=== PATIENT | female | born 1985 | race Caucasian/White ===

== ENCOUNTER → 2024-05-10 16:04 | Outpatient (REF) | payer BC, SELFPAY | LOC: PNTC 16:04 | PROVIDERS: ATTENDING PHYSICIAN Obstetrics & Gynecology | DX: O09.529 Supervision of elderly multigravida, unspecified trimester (principal); O09.811 Supervision of pregnancy resulting from assisted reproductive technology, first trimester | CPT/HCPCS: 76801; 76813 ==

== ENCOUNTER → 2024-06-07 06:47 | Outpatient (REF) | payer BC, SELFPAY | LOC: PNTC 06:47 | PROVIDERS: ATTENDING PHYSICIAN Obstetrics & Gynecology | DX: O09.812 Supervision of pregnancy resulting from assisted reproductive technology, second trimester (principal); O09.529 Supervision of elderly multigravida, unspecified trimester | CPT/HCPCS: 76805 ==

== ENCOUNTER → 2024-07-05 06:51 | Outpatient (REF) | payer BC, SELFPAY | LOC: PNTC 06:51 | PROVIDERS: ATTENDING PHYSICIAN Obstetrics & Gynecology | DX: O09.812 Supervision of pregnancy resulting from assisted reproductive technology, second trimester (principal); O09.529 Supervision of elderly multigravida, unspecified trimester | CPT/HCPCS: 76811; 76817 ==

== ENCOUNTER → 2024-08-17 09:46 | Outpatient (REF) | payer BC, SELFPAY | LOC: PNTC 09:46 | PROVIDERS: ATTENDING PHYSICIAN Obstetrics & Gynecology | DX: O09.529 Supervision of elderly multigravida, unspecified trimester (principal) | CPT/HCPCS: 76816 ==

== ENCOUNTER → 2024-09-28 07:42 | Outpatient (REF) | payer BC, SELFPAY | LOC: PNTC 07:42 | PROVIDERS: ATTENDING PHYSICIAN Obstetrics & Gynecology | DX: O09.529 Supervision of elderly multigravida, unspecified trimester (principal) | CPT/HCPCS: 76816 ==

== ENCOUNTER → 2024-10-26 08:19 | Outpatient (REF) | payer BC, SELFPAY | LOC: PNTC 08:19 | PROVIDERS: ATTENDING PHYSICIAN Obstetrics & Gynecology | DX: O09.529 Supervision of elderly multigravida, unspecified trimester (principal) | CPT/HCPCS: 59025; 76816 ==

== ENCOUNTER 2024-11-02 14:39 | Observation (INO) | payer BC, SELFPAY ==
[2024-11-02 15:08] VITALS: BP 109/77; BMI 29.2
[2024-11-02 15:08] LABS: Hematocrit 40.7 % (37.0-47.0); Hemoglobin 14.2 g/dL (12.0-16.0); Mean Corp Hgb Conc. 34.9 g/dL (33.0-37.0); Mean Corpuscular Volume 96.4 fL (81.0-99.0); Nucleated Red Blood Cells % 0 %; Platelet Count 182 10^3/uL (130-400); Red Cell Dist. Width 12.1 % (11.5-14.5)
[2024-11-02 15:36] LABS: ALT (SGPT) 15 U/L (0-35); AST (SGOT) 27 U/L (14-36); Albumin 3.6 g/dl (3.5-5.0); Alkaline Phosphatase 236 U/L (38-126); Blood Urea Nitrogen 27 mg/dl (7-17); Calcium 9.3 mg/dl (8.4-10.2); Carbon Dioxide 21 mmol/L (22-30); Chloride 111 mmol/L (98-107); Estimated Creatinine Clearance 82 ml/min; Glucose 81 mg/dl (70-99); Potassium 4.4 mmol/L (3.5-5.1); Sodium 136 mmol/L (135-145); Total Protein 6.1 g/dl (6.3-8.2); eGFR > 60.00
== END 2024-11-02 16:40 | disposition home or self-care (01) ==
LOC: PNTC-IN 14:39
PROVIDERS: ADMITTING PHYSICIAN Obstetrics & Gynecology
DX: O99.891 Other specified diseases and conditions complicating pregnancy (principal); R03.0 Elevated blood-pressure reading, without diagnosis of hypertension; Z3A.36 36 weeks gestation of pregnancy
CPT/HCPCS: 59025; 76815; 80053; 82570; 84156; 85025; G0378

== ENCOUNTER → 2024-11-09 08:16 | Outpatient (REF) | payer BC, SELFPAY | LOC: PNTC 08:16 | PROVIDERS: ATTENDING PHYSICIAN Obstetrics & Gynecology | DX: O09.529 Supervision of elderly multigravida, unspecified trimester (principal) | CPT/HCPCS: 59025; 76815 ==

== ENCOUNTER → 2024-11-16 08:16 | Outpatient (REF) | payer BC, SELFPAY | LOC: PNTC 08:16 | PROVIDERS: ATTENDING PHYSICIAN Obstetrics & Gynecology | DX: O09.523 Supervision of elderly multigravida, third trimester (principal); O09.813 Supervision of pregnancy resulting from assisted reproductive technology, third trimester | CPT/HCPCS: 59025; 76815 ==

== ENCOUNTER 2024-11-19 09:18 | Inpatient (IN) | payer BC, SELFPAY ==
[2024-11-19 09:42] VITALS: BP 135/98; BMI 29.1
[2024-11-19 10:16] LABS: Hematocrit 39.6 % (37.0-47.0); Hemoglobin 14.0 g/dL (12.0-16.0); Mean Corp Hgb Conc. 35.4 g/dL (33.0-37.0); Mean Corpuscular Volume 95.0 fL (81.0-99.0); Nucleated Red Blood Cells % 0 %; Platelet Count 165 10^3/uL (130-400); Red Cell Dist. Width 12.2 % (11.5-14.5)
[2024-11-19 10:32] LABS: ALT (SGPT) 15 U/L (0-35); AST (SGOT) 25 U/L (14-36); Albumin 3.6 g/dl (3.5-5.0); Alkaline Phosphatase 242 U/L (38-126); Blood Urea Nitrogen 24 mg/dl (7-17); Calcium 9.1 mg/dl (8.4-10.2); Carbon Dioxide 19 mmol/L (22-30); Chloride 111 mmol/L (98-107); Estimated Creatinine Clearance 67 ml/min; Glucose 120 mg/dl (70-99); Potassium 4.3 mmol/L (3.5-5.1); Sodium 137 mmol/L (135-145); Total Protein 6.1 g/dl (6.3-8.2); eGFR > 60.00
[2024-11-19] MEDS: PITOCIN 30 UNITS/NSS 500 ML IV (14:25)
[2024-11-19] MEDS: LR 1000 IV ×3 (14:26→23:32)
[2024-11-19] MEDS: FENTANYL/BUPIVACAINE 100 EPIDURAL (18:39)
[2024-11-19] MEDS: SUBLIMAZE 100 MCG EPIDURAL (18:39)
[2024-11-20] MEDS: FENTANYL/BUPIVACAINE 100 EPIDURAL ×2 (02:55→11:42)
[2024-11-20] MEDS: LR 1000 IV ×2 (07:45→13:21)
--- NOTE | 2024-11-20 15:45 | HPS.HSE ---
Family Physician
-
Family Physician: Antione Davidson
Chief Complaint
-
rupture of membranes
History of Present Illness
HPI: Patient is a 39yo @40.1 who presents with complaints of spontaneous rupture of membranes for meconium stained amniotic fluid at 2315 on 11/18. She reported some contractions but they were not regular or strong. She denied VB. +FM.
complications
- Advanced maternal age
- IVF
- Hypothyroidism
- OCD
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
Meds: PNV, iron, bASA, Buspar 10mg daily
Surghx: wisdom teeth, IVF
NKDA
Socialhx: denies tobacco, etoh or illicit drug use
Famhx: non-contributory
OBHx: SABx2
labs: Blood type O+, Ab neg, Rubella immune, RPR non-reactive, HIV negative, Hep C negative, HBsAg neg, GCCT neg, 1hr 115, GBS neg
Medical History
Past Medical History
Past Medical History: Reports Hypothyroidism and Other
Past Surgical History: Reports Other
Social History
Tobacco: Non-smoker
Alcohol: None
Drug: None
Family History
Family History: Not pertinent
Allergies / Home Medications
Allergies reflects when Allergies were last updated in [facility].
Home Medications with original date entered in [facility]
Allergy/Medication List:
Meds: PNV, iron, bASA, Buspar 10mg daily
NKDA
Review of Systems
-
A 12 point ROS was completed and negative except as noted: Yes
Physical Exam
Vital Signs
Vital Signs
Temp Pulse Resp BP
98.0 F 92 18 135/98
11/19/24 09:42 11/19/24 09:42 11/19/24 09:42 11/19/24 09:42
Physical Exam
General: Well Developed and Well Nourished
HEENT: NormoCephalic
Respiratory: Non Labored Respirations
Cardiac: Regular Rhythm
Neuro: Awake and Alert
Psych: Calm
Laboratory Results
-
11/19/24 10:10
11/19/24 10:10
Laboratory Results
Total Bilirubin 1.0 mg/dl (0.2-1.3) 11/19/24 10:10
AST 25 U/L (14-36) 11/19/24 10:10
ALT 15 U/L (0-35) 11/19/24 10:10
Alkaline Phosphatase 242 U/L (38-126) H 11/19/24 10:10
Impression/Plan
-
IMPRESSION:
Patient is a 39yo @40.1 weeks who presents with spontaneous rupture of membranes for meconium stained amniotic fluid on 11/18
PLAN:
- Patient admitted for expectant management. Declined Pitocin for augmentation when first admitted. After several hours, patient was still not joanna and she agreed to Pitocin for augmentation. She progressed to 1-2cm at 1910 and then to 4cm at
0930. Throughout the morning of 11/20, the Pitocin had to be turned off for category 2 tracing with variable and late decelerations. At 1450, she was examined and remained unchanged. Pitocin was unable to stay on due to category 2 tracing.
Recommendation was made for primary section for non-reassuring heart tones. Risks, benefits and alternatives including bleeding, infection, damage to surrounding structures and need for future operations reviewed. Consents signed.
Patient consented for a blood transfusion in case of emergency
- 2g Ancef and 500mg of Azithromycin were ordered for antibiotic prophylaxis
- Anesthesia notified
[2024-11-20] MEDS: ZITHROMAX INFUSION 250 IV (16:31)
[2024-11-20] MEDS: ANCEF 10 IV (16:31)
[2024-11-20] MEDS: BICITRA 30 ML PO (16:32)
[2024-11-20] MEDS: TYLENOL 1000 MG PO (16:34)
[2024-11-20] MEDS: PITOCIN 30 UNITS/NSS 500 ML IV (17:18)
[2024-11-20 17:51] LABS: Cord VBG B.E. - POC -3.8 mmol/L; Cord VBG HCO3 - POC 22 mmol/L; Cord VBG O2 Sat % - POC 30.6 %; Cord VBG pCO2 - POC 39 mmHg; Cord VBG pH - POC 7.35; Cord VBG pO2 - POC 20 mmHg
[2024-11-20] MEDS: MORPHINE SULFATE 2 MG IV (18:57)
--- NOTE | 2024-11-20 19:52 | OR.RPT ---
Operative Report
Operative Report
Procedure date: 11/20/2024
Preop diagnosis: IUP @40.1, meconium stained amniotic fluid, non-reassuring heart tones, IVF
Postop diagnosis: same
Surgeon: David
Procedure: Primary low transverse section
Anesthesia: Epidural, Bard
Findings: viable female born at 1721, Apgars 8/9, thick meconium stained amniotic fluid, uterine atony responded to TXA and Hemabate. Raw appearing hysterotomy- Surgicel placed at the end
QBL: 732mL
Complications: none
Pathology: Placenta
Indication: Patient is a 39yo @40.1 weeks who presented to Labor and Delivery on 11/19 with complaints of rupture of membranes for meconium stained fluid on 11/18 at 2315. She was having irregular contractions. On admission, Pitocin was
recommended since she had been ruptured for >9 hours but she declined and opted for expectant management. After several hours, she agreed to Pitocin. She was 1-2cm when Pitocin was started. The Pitocin was continued and she progressed to 4cm. During
the day of 11/20, Pitocin was turned on and off secondary to a category 2 tracing with late and variable decelerations. She was re-examined at 1450 and was unchanged from the exam in the morning. A discussion was held with the patient in her
that she is remote from delivery and has not made any cervical change and Pitocin cannot be increased secondary to non-reassuring tracing. A primary section was recommended. Patient wanted to discuss with her and her senior program analyst. After an
hour and a half, patient agreed to proceed with primary section. Risks, benefits and alternatives including bleeding, infection, damage to surrounding structures and need for future operations. Consents were signed and anesthesia was
notified.
Procedure: Patient was taken to the operating room where epidural anesthesia was bolused and found to be adequate. 2g of Ancef and 500mg of Azithromycin were given for antibiotic prophylaxis. The abdomen was prepped with ChloraPrep. The patient was
draped in the normal sterile fashion. She was placed in the dorsal supine position with a left lateral tilt. A Pfannenstiel incision was made with a 10 blade and carried down to the fascia with a scalpel. Hemostasis achieved with Bovie. The fascia
was incised and dissected laterally with Reeves scissors. The superior aspect of the fascia was grasped with China clamps. The underlying rectus fascia was sharply dissected with Reeves scissors. In a similar fashion the inferior aspect of the fascia
was elevated with China clamps and the rectus muscle was dissected off with Reeves scissors. The rectus muscles were down the midline to the level of the pubic symphysis with manual dissection. The peritoneum was bluntly entered and
extended using manual traction.
Vazquez retractor and bladder blade were placed revealing good visualization of the bladder. The vesicouterine peritoneum was identified. A very thin lower uterine segment was noted. The lower uterine segment was incised with a scalpel. Thick
meconium stained amniotic fluid noted at entry. The uterine incision was extended bluntly with lateral and upward traction.
The fetus was in cephalic presentation. The head was elevated out of the pelvis with special attention paid to avoid using the uterine incision as a fulcrum. Gentle fundal pressure was applied once the head was brought to the incision. The head
delivered through the hysterotomy. The rest of the infant delivered without difficulty. Delayed cord clamping was not performed per neonatology. The was handed off to the superintendent drilling. IV oxytocin was started to facilitate uterine
contractions. The placenta was manually extracted. The uterus was exteriorized. The uterus was atonic and there was brisk bleeding. TXA and Hemabate were given. Allis clamps were placed at the apices of the hysterotomy. The inside of the uterus was
wiped with a lap sponge to assure complete removal of placental membranes. Fundal massage was performed and there was improvement in the tone. The uterine incision was closed with 0 Vicryl in a running locked fashion. A horizontal imbricating stitch
was done on the hysterotomy with 0 Vicryl. The hysterotomy was inspected and there was oozing at the left corner. Figure of eights with 2-0 and 0 Vicryl were used to achieve hemostasis. Bovie cautery was used on small oozing areas of the serosa. The
uterus was placed back in the abdomen. Blood clots and fluid were wiped out of the abdomen and pelvis with moist laparotomy sponges. The hysterotomy was examined and was hemostatic, but raw appearing. Surgicel was placed over the hysterotomy
The rectus muscles were inspected and there was oozing from the right rectus muscle. Bovie cautery was used to achieve hemostasis. The fascial layer was closed in a running continuous fashion using 0 Vicryl. The subcutaneous tissue was copiously
irrigated and any small bleeding vessels were cauterized with Bovie cautery. The subcutaneous tissue was not reapproximated as it was less than 2cm. The skin was closed with 4-0 Vicryl in a subcuticular fashion and covered with skin glue. The
patient tolerated the procedure well. All sponge and instrument counts were correct times two. The patient was taken to the recovery room in stable condition. Ceballos catheter was draining clear urine at the end of the procedure.
[2024-11-20] MEDS: TORADOL 15 MG IV (20:04)
[2024-11-21] MEDS: COLACE 100 MG PO ×3 (00:19→20:21)
[2024-11-21] MEDS: TORADOL 15 MG IV ×3 (01:26→12:46)
[2024-11-21 04:26] LABS: Hematocrit 36.9 % (37.0-47.0); Hemoglobin 12.7 g/dL (12.0-16.0); Mean Corp Hgb Conc. 34.4 g/dL (33.0-37.0); Mean Corpuscular Volume 96.1 fL (81.0-99.0); Platelet Count 128 10^3/uL (130-400); Red Cell Dist. Width 12.2 % (11.5-14.5)
[2024-11-21] MEDS: PRENATAL PLUS 1 TABLET PO (07:22)
[2024-11-21] MEDS: FEOSOL 325 MG PO (07:22)
[2024-11-21] MEDS: MOTRIN 600 MG PO (20:21)
[2024-11-22] MEDS: TYLENOL 650 MG PO ×2 (02:00→06:00)
[2024-11-22] MEDS: MOTRIN 600 MG PO ×2 (02:23→19:50)
[2024-11-22 06:08] LABS: Hematocrit 28.6 % (37.0-47.0); Hemoglobin 10.1 g/dL (12.0-16.0); Mean Corp Hgb Conc. 35.3 g/dL (33.0-37.0); Mean Corpuscular Volume 96.6 fL (81.0-99.0); Platelet Count 138 10^3/uL (130-400); Red Cell Dist. Width 12.3 % (11.5-14.5)
[2024-11-22 06:20] LABS: ALT (SGPT) 11 U/L (0-35); AST (SGOT) 27 U/L (14-36); Albumin 2.4 g/dl (3.5-5.0); Alkaline Phosphatase 180 U/L (38-126); Blood Urea Nitrogen 27 mg/dl (7-17); Calcium 8.3 mg/dl (8.4-10.2); Carbon Dioxide 24 mmol/L (22-30); Chloride 112 mmol/L (98-107); Estimated Creatinine Clearance 57 ml/min; Glucose 77 mg/dl (70-99); Sodium 139 mmol/L (135-145); Total Protein 4.4 g/dl (6.3-8.2); eGFR 53.98
[2024-11-22 06:26] LABS: Potassium 4.3 mmol/L (3.5-5.1)
--- NOTE | 2024-11-22 07:32 | W.PN.ANS.POP ---
Anesthesia Post Operative
- Anesthesia Post Op Note
Vital Signs Stable-See Nursing Note: Yes
Airway Patent: Yes
Adequate Pain Control: Yes
Change in Mental Status: No
Current Postoperative Nausea & Vomiting: No
Anesthesia Complications: No
General Anesthetic Recall: No
Unplanned Admission: No
Post Op Hydration Adequate: Yes
[2024-11-22 08:21] LABS: Cord ABG B.E. - POC -3.4 mmol/L; Cord ABG HCO3 - POC 25 mmol/L; Cord ABG pCO2 - POC 55 mmHg; Cord ABG pH - POC 7.26; Cord ABG pO2 - POC < 18 mmHg
[2024-11-22] MEDS: FEOSOL 325 MG PO (08:38)
[2024-11-22] MEDS: PRENATAL PLUS 1 TABLET PO (08:38)
[2024-11-22] MEDS: COLACE 100 MG PO ×2 (08:38→19:50)
[2024-11-22] MEDS: ROXICODONE 5 MG PO ×3 (11:43→19:53)
[2024-11-23] MEDS: ROXICODONE 5 MG PO ×2 (03:05→09:48)
[2024-11-23] MEDS: MOTRIN 600 MG PO ×2 (03:05→09:46)
[2024-11-23] MEDS: COLACE 100 MG PO (08:18)
[2024-11-23] MEDS: PRENATAL PLUS 1 TABLET PO (08:18)
[2024-11-23] MEDS: FEOSOL 325 MG PO (08:18)
--- NOTE | 2024-11-23 11:12 | W.DS.TRANS ---
DC Summary - Superintendent Recreation
-
Discharge Instructions:
Discharge Diagnosis/Procedures primary cs
Instructions:
Stand-Alone Forms: [facility]DRP Delivery
Changes to Home Medications: No
Discharge Medications:
DC Medications w/original date entered in [facility]
ferrous sulfate 325 mg (65 mg iron) tablet (Iron (ferrous sulfate)) 325 mg PO DAILY Supplement 11/02/24
magnesium 250 mg tablet 135 mg PO DAILY Supplement 11/02/24
prenat.vits,parth,xxg-yxyd-ocbxv 1 tab PO DAILY Supplement 11/02/24
ibuprofen 600 mg tablet 600 mg PO Q6HPRN PRN cramps #90 tabs 11/23/24
oxycodone 5 mg tablet 5 mg PO Q4HPRN PRN moderate pain #10 tabs 11/23/24
Home Medication Changes
Pending Results: No
Total time spent discharging patient (in min): 20
[2024-11-23 14:03] LABS: Syphilis/T. pallidum Ab Reflex Negative (Negative)
== END 2024-11-23 11:54 | disposition home or self-care (01) | DRG 788 ==
LOC: LDRP 09:18
PROVIDERS: Student in an Organized Health Care Education/Training Program; ADMITTING PHYSICIAN Obstetrics & Gynecology
PROC: 3E033VJ Introduction of Other Hormone into Peripheral Vein, Percutaneous Approach (ICD-10-PCS; 2024-11-19)
PROC: 10D00Z1 Extraction of Products of Conception, Low, Open Approach (ICD-10-PCS; 2024-11-20)
DX: O42.02 Full-term premature rupture of membranes, onset of labor within 24 hours of rupture (principal); Z3A.40 40 weeks gestation of pregnancy; Z37.0 Single live birth; O48.0 Post-term pregnancy; F42.9 Obsessive-compulsive disorder, unspecified; O99.344 Other mental disorders complicating childbirth; H54.61 Unqualified visual loss, right eye, normal vision left eye; N97.9 Female infertility, unspecified; O99.284 Endocrine, nutritional and metabolic diseases complicating childbirth; O62.2 Other uterine inertia; O76 Abnormality in fetal heart rate and rhythm complicating labor and delivery; O69.81X0 Labor and delivery complicated by cord around neck, without compression, not applicable or unspecified; E03.9 Hypothyroidism, unspecified; O77.0 Labor and delivery complicated by meconium in amniotic fluid; O13.4 Gestational [pregnancy-induced] hypertension without significant proteinuria, complicating childbirth; Z79.82 Long term (current) use of aspirin; Z79.890 Hormone replacement therapy
CPT/HCPCS: 80053; 82570; 84156; 85025; 85027; 86780; 86850; 86900; 86901; 88307